=== PATIENT | female | born 1990 | race African-American/Black ===

== ENCOUNTER 2019-07-22 11:39 | Emergency (ER) | payer OTHER ==
[~2019-07-22] VITALS: Ht 157.5 cm; Wt 54.0 kg
[2019-07-22 11:45] VITALS: TEMP 98.6
[2019-07-22 12:45] VITALS: BP 120/78
== END 2019-07-22 12:45 | disposition home or self-care (01) ==
LOC: ED 11:39
DX: J32.9 Chronic sinusitis, unspecified (principal); R22.0 Localized swelling, mass and lump, head
CPT/HCPCS: 96372; 99283; J0696; J2930

== ENCOUNTER 2020-01-03 10:36 | Outpatient (CLI) | payer OTHER | END 2020-01-03 22:36 | disposition home or self-care (01) | LOC: RAD 10:36 | DX: R07.89 Other chest pain (principal) ==